=== PATIENT | male | born 1980 | race African-American/Black ===

== ENCOUNTER 2020-06-10 14:06 | Emergency (ER) | payer MEDICAID ==
[~2020-06-10] VITALS: Ht 175.3 cm; Wt 72.0 kg
[2020-06-10] MEDS ORDERED: CARBAMIDE PEROXIDE 6.5% OTIC SOLN 15ML EACH EAR ONE (14:45)
[2020-06-10] MEDS: CARBAMIDE PEROXIDE 6.5% OTIC SOLN 15ML EACH EAR SCH (15:09)
[2020-06-10 15:39] VITALS: BP 141/70
== END 2020-06-10 15:39 | disposition home or self-care (01) ==
LOC: ER 14:16
DX: H61.20 Impacted cerumen, unspecified ear (principal); R56.9 Unspecified convulsions
CPT/HCPCS: 69200; 69209; 69210; 99282